=== PATIENT | male | born 1965 | race Caucasian/White ===

== ENCOUNTER → 2025-01-01 | Day surgery (SDC) | payer MEDICARE, MEDICAID ==
[~2025-01-01] VITALS: Ht 162.6 cm; Wt 81.6 kg
[~2025-01-01] MED LIST: APIX5TAB PO; ATOR20TA65 PO; BALANCED SALT IRRIG SOLN 15ML ONE; BALANCED SALT IRRIG SOLN COMB1 500ML OP NR; CYCLOPENTOLATE HCL 1% OPHTH DROPS 2ML LEFTEYE ONE; DULA1.5P SQ; FENTANYL CITRATE/PF 50MCG/ML 2ML VIAL ONE; GABA-1180 PO; GLIP10TA17 PO; GLIP5TAB22 PO; HYALURONATE SODIUM 10MG/ML 0.55ML SYRINGE IO ONE; METF-1150 PO; PANT40TA51 PO; PHENYLEPHRINE HCL 10% OPHTH DROPS 5ML LEFTEYE ONE; PROPOFOL 200MG/20ML VIAL IV ONE; SODIUM CHLORIDE 0.9% 1,000 ML IV SCH; TROPICAMIDE 1% OPHTH DROPS 15ML LEFTEYE ONE; TRYPAN BLUE 0.5 ML DISP.SYRIN IO ONE
== END | disposition home or self-care (01) ==
LOC: OR 06:29
PROVIDERS: ATTEND Ophthalmology
DX: E11.36 Type 2 diabetes mellitus with diabetic cataract (principal); H25.89 Other age-related cataract; E11.22 Type 2 diabetes mellitus with diabetic chronic kidney disease; N18.9 Chronic kidney disease, unspecified; E78.5 Hyperlipidemia, unspecified; Z79.84 Long term (current) use of oral hypoglycemic drugs; Z79.899 Other long term (current) drug therapy; Z98.890 Other specified postprocedural states; Z88.8 Allergy status to other drugs, medicaments and biological substances
CPT/HCPCS: 82962; 66982; Q9957; V2632; J3010; J2003; J2704; J3490